=== PATIENT | female | born 1950 | race Caucasian/White ===

== ENCOUNTER 2022-09-02 23:04 | Emergency (ER) | payer MEDICARE, SELFPAY ==
--- NOTE | ~2022-09-02 | CT_ITS ---
EXAMINATION: CT abdomen pelvis wo con DATE: 09/03/2022 00:38 INDICATION: Right flank pain. Nausea and vomiting. TECHNIQUE: Computed tomography (CT) of the abdomen and pelvis was performed without intravenous contr ast. Automated exposure control and iterative reconstruction technique were employed. The dose-length product was 1081.05 mGy-cm. COMPARISON: None. FINDINGS: The visualized portions of the lung bases demonstrate mild atelectasis. There is mild scarr ing in paraspinal right lower lobe. No pleural effusion. The heart size is normal. No pericardial eff usion. The liver, gallbladder, spleen, pancreas, and adrenal glands are normal. There are 2 mm and 3 mm stones in right kidney. There is mild right hydronephrosis and hydroureter. There is a 6 mm stone in distal right ureter. There are greater than 10 stones in left kidney measuring up to 6 mm. There i s an 18 mm cyst in left kidney. There is diverticulosis of the colon without evidence of diverticulit is. The appendix is normal. There are no dilated loops of bowel. There are no pathologically enlarged lymph nodes. There is no free intraperitoneal fluid. There is moderate thoracic spondylosis and [place] lumbar spondylosis. IMPRESSION: 1. 6 mm stone in distal right ureter with mild right hydronephrosis and hydroureter. 2. Bilateral nonobstructing kidney stones. Reviewed, dictated and finalized at location A. [facility] IMPRESSION: 1. 6 mm stone in distal right ureter with mild right hydronephrosis and hydrour eter. 2. Bilateral nonobstructing kidney stones.
[2022-09-02 23:08] VITALS: PULSE 84; RESP 20; TEMP 36.2; O2SAT 98
[2022-09-02 23:27] VITALS: BP 158/94; PULSE 84; RESP 18; TEMP 36.9; O2SAT 97
[2022-09-02 23:29] VITALS: O2SAT 97
[2022-09-02 23:30] VITALS: O2SAT 97
[2022-09-02 23:31] VITALS: BP 156/68; O2SAT 98
--- NOTE | 2022-09-02 23:35 | ED.ABDPAIN ---
HPI - Abdominal Pain General Chief Complaint: Urogenital-Female Stated Complaint: flank pain Time Seen by Provider: 09/02/22 23:16 Source: patient Mode of arrival: ambulatory Limitations: no limitations History of Present Illness HPI narrative: This is a 72-year-old female that presents to the emergency department for a possible kidney stone. Reports history kidney stones for which she follows with Dr. Amador. She started to have pain a couple of days ago. It worsened tonight prompting her to be seen. She reports pain in the right flank and radiates into her right abdomen. She has been taking her same pain medication with little relief. Also reports some nausea and vomiting. Denies fever, dysuria, or hematuria. Related Data Allergies Allergy/AdvReac Type Severity Reaction Status Date / Time No Known Allergies Allergy Verified 09/02/22 23:41 Review of Systems Review of Systems: CONSTITUTIONAL: Denies fever GASTROINTESTINAL: Reports abdominal pain, nausea, vomiting GENITOURINARY: Denies dysuria or hematuria. All systems reviewed & are unremarkable except as noted in HPI and below PMFSH Past Medical History Medical History (Updated 09/03/22 @ 02:49 by Alicia Win PA-C) History of hypertension Social History Social History (Updated 09/02/22 @ 23:37 by Alicia Win PA-C) Substance use: never Exam Narrative: GENERAL: Well-appearing, well-nourished, and in no acute distress. HEAD: Normocephalic, atraumatic. EYES: EOMI. CHEST: Clear to auscultation. No respiratory distress. No wheezes rales or rhonchi HEART: Regular rate and rhythm. No murmur heard. Normal peripheral pulses. ABDOMEN: Soft, nontender, nondistended, normal active bowel sounds. No CVA tenderness EXTREMITIES: Normal range of motion. No edema. SKIN: Warm, dry, no rash. NEURO: No focal deficits. Alert and oriented x3. PSYCH: Normal mood and affect Course Course Emergency Course: Patient and family updated on work-up. Reports she is currently pain-free and wishes to be discharged. Vital Signs Vital signs: Vital Signs Temperature 97.2 F L 09/02/22 23:08 Pulse Rate 84 09/02/22 23:08 Respiratory Rate 20 09/02/22 23:08 Pulse Oximetry 98 09/02/22 23:08 Oxygen Delivery Room Air 09/02/22 23:08 Temperature 98.5 F 09/02/22 23:27 Pulse Rate 84 09/02/22 23:27 Respiratory Rate 18 09/02/22 23:27 Blood Pressure 158/94 H 09/02/22 23:27 Pulse Oximetry 97 09/02/22 23:27 Oxygen Delivery Room Air 09/02/22 23:08 MDM - Abdominal Pain MDM Narrative Medical decision making narrative: Patient presents to the emergency department for right flank pain radiating into her groin. Reports history of kidney stones for which she follows with Dr. Amador. Patient is afebrile and nontoxic-appearing. Her vitals are stable. CBC with mild leukocytosis to 11.9. Also shows mild hemoconcentration. Patient hydrated with IV fluids in the ED. Metabolic panel with normal-appearing kidney function. UA with 21-50 red blood cells and greater than 75 white blood cells. This will be sent for culture. Patient was not endorsing any dysuria. She was given a dose of IV Rocephin for findings in her urine and will be started on oral antibiotics. CT scan of the abdomen and pelvis shows a right distal 5 mm ureteral stone with moderate right hydroureteronephrosis. Patient and family updated on work-up. Reports she is currently pain-free and wishes to be discharged. Patient was instructed that she should have close follow-up with her urologist. She was given warnings to return to the ER Lab Data Attestation: I reviewed the patient's lab results. 09/02/22 23:36 09/02/22 23:36 Labs: Lab Results 09/02/22 09/02/22 09/02/22 Range/Units 23:36 23:36 23:36 WBC 11.9 H (4.5-10.0) K/mm3 RBC 4.75 (4.2-5.4) M/mm3 Hgb 15.1 H (12.0-15.0) g/dL Hct 44.3 (37.0-47.0) % MCV 93.3 (80-100)
[2022-09-02 23:43] LABS: Basophils Absolute Auto 0.1 K/mm3 (0.0-0.1); Basophils Percent Auto 0.6 % (0.2-1.2); Eosinophils Absolute Auto 0.2 K/mm3 (0-0.3); Eosinophils Percent Auto 1.5 % (0-4.4); Hematocrit 44.3 % (37.0-47.0); Hemoglobin 15.1 g/dL (12.0-15.0); Immature Granulocyte Absolute 0.05 K/mm3 (0.00-0.031); Immature Granulocyte Percent A 0.4 % (0-0.5); Lymphocytes Absolute Auto 2.66 K/mm3 (0.9-3.2); Lymphocytes Percent Auto 22.3 % (18.3-44.2); Mean Corpuscular HGB Conc 34.1 g/dl (32-36); Mean Corpuscular Hemoglobin 31.8 pg (26-34); Mean Corpuscular Volume 93.3 fl (80-100); Mean Platelet Volume 11.1 fl (7.4-10.4); Monocytes Absolute Auto 0.7 K/mm3 (0.1-0.6); Monocytes Percent Auto 5.6 % (2.6-8.5); Neutrophils Absolute Auto 8.3 K/mm3 (1.3-6.7); Neutrophils Percent Auto 69.6 % (45.5-73.1); Platelet Count Result 247 k/mm3 (150-375); Red Blood Count 4.75 M/mm3 (4.2-5.4); Red Cell Distribution Width 11.6 % (11.5-14.5); White Blood Count 11.9 K/mm3 (4.5-10.0)
[2022-09-02 23:45] VITALS: O2SAT 95
[2022-09-02] MEDS: ONDANSETRON INJ 4 MG/2 ML VIAL IV PUSH (23:48)
[2022-09-02] MEDS: SODIUM CHLORIDE 0.9% IV 500 ML 999 ML IV CONT (23:48)
[2022-09-02 23:49] LABS: Add Urine Microscopic? YES; Appearance Urine Clear (Clear); Bilirubin Urine Negative (Negative); Blood Urine 3+ (Negative); Color Urine Yellow (Yellow); Glucose Urine UA Negative (Negative); Ketones Urine Negative (Negative); Leukocyte Esterase Ur 2+ LEU/UL (Negative); Nitrate Urine Negative (Negative); Protein Urine Negative (Negative); Urobilinogen Urine 0.2 mg/dL (<2.0); pH Urine 5.5 (5.0-9.0)
[2022-09-02] MEDS: MORPHINE SULFATE (*CRX) 4 MG/ML INJ IV PUSH (23:49)
[2022-09-02 23:55] LABS: Anion Gap 9 mmol/L (8-16); Blood Urea Nitrogen 17 mg/dL (7-17); Calcium 9.2 mg/dL (8.4-10.2); Carbon Dioxide 27 mmol/L (22-30); Chloride 99 mmol/L (98-107); Estimated CRCL calculation 57 ml/min; Estimated Glomerular Filt Rate > 60; Glucose 126 mg/dL (65-110); Potassium 3.9 mmol/L (3.4-5.0); Sodium 135 mmol/L (137-145)
[2022-09-02 23:56] LABS: Bacteria Urine Trace /hpf; Mucus Urine Rare /lpf; RBC Urine 21-50 /hpf (0-2); Squamous Epithelial Cell Urine Rare /hpf (Few); WBC Urine >75 /hpf
[2022-09-03] VITALS (14 sets, daily range): BP systolic 127; BP diastolic 84; PULSE 79; RESP 18; TEMP 36.9; O2SAT 88–99
== END 2022-09-03 03:20 | disposition home or self-care (01) ==
PROVIDERS: Emergency Provider Physician Assistant
DX: N13.2 Hydronephrosis with renal and ureteral calculous obstruction (principal); R82.81 Pyuria; I10 Essential (primary) hypertension
CPT/HCPCS: 36415; 74176; 80048; 81001; 85025; 87086; 96365; 96367; 96375; 99284; J0131; J0696; J2270; J2405; J7040